=== PATIENT | male | born 1970 | race Caucasian/White ===

== ENCOUNTER 2018-04-21 07:42 | Emergency (ER) | payer BC ==
[~2018-04-21] VITALS: Ht 180.3 cm; Wt 149.7 kg
--- OUTSIDE RECORDS SUMMARY | 2018-04-21 07:44 | XMS REPORT | Clinical Summary ---
Author Author [facility] Address Unknown Phone Unavailable Care Team Providers Care Pan Devulcanizer Helper Name Role Phone Jerrell Justice MD PCP Allergies Comments Active Allergy Reactions Severity Noted Date No Known Drug Allergies Other (See 07/03/2015 Comments) Medications End Date Status Medication Sig Dispensed Refills Start Date Active lisinopril TK 1 T PO D 2 (PRINIVIL,ZESTRIL) 20 MG 6 tablet Active lancets (ACCU-CHEK Check daily 100 each 10 FASTCLIX) misc 6 Active FREESTYLE LITE STRIPS CHECK BLOOD 400 strip 10 strip test strips SUGAR BEFORE 7 MEALS AND EVERY NIGHT AT BEDTIME Active sertraline (ZOLOFT) 50 MG 0 tablet 7 Active atorvastatin (LIPITOR) 10 TK 1 T PO 6 MG tablet ONCE QD 7 Active INVOKAMET 150-500 mg TAKE 1 TABLET 180 tablet 1 tablet BY MOUTH 7 TWICE DAILY DIRECTED Active Problems Problem Noted Date Uncontrolled type 2 diabetes mellitus 07/03/2015 Vitamin D deficiency 07/03/2015 Encounters Care Team Description Date Type Specialty Linda Sow MD 08/13/2017 Refill Endocrinology after 04/20/2017 Social History Date Tobacco Use Types Packs/Day Years Used Former Smoker 20 Alcohol Use Drinks/Week oz/Week Comments No Sex Assigned at Date Recorded Not on file Industry Job Start Date Occupation Not on file Not on file Not on file Travel End Travel History Travel Start No recent travel history available. Last Filed Vital Signs Not on file Plan of Treatment Health Maintenance Due Date Last Done Comments DIABETIC RETINAL EYE EXAM 1970 MMR VACCINES (1 of - 12/29/1971 Standard series) DIABETIC FOOT EXAM 1980 VARICELLA VACCINES (1 of 12/29/1983 2 - 2-dose adolescent series) HEPATITIS B VACCINES (1 1989 of 3 - Risk 3-dose series) URINE MICROALBUMIN 02/13/2017 02/14/2016 INFLUENZA VACCINE 12/24/2017 IPV VACCINES Aged Out No longer eligible based on patient's age to complete this topic MENINGOCOCCAL VACCINE Aged Out No longer eligible based on patient's age to complete this topic Results Not on fileafter 04/20/2017 Insurance Payer Benefit Subscriber ID Type Phone Address Plan / Group CIGNA CIGNA xxxxxxxxxxx HMO LOCAL PLUS/SUREF IT Advance Directives Patient has advance care planning documents on file. For more information, josselyn colón contact: Terrance Jovel [address] [place] [address]
[2018-04-21] MEDS ORDERED: ONDANSETRON HCL INJ 2 MG/ML VIAL IV STA (08:11)
[2018-04-21] MEDS ORDERED: KETOROLAC TROMETHAMINE 30 MG/ML VIAL IV STA (08:11)
[2018-04-21] MEDS ORDERED: SODIUM CHLORIDE 0.9% 1000ML 1,000 ML IV ONE (09:00)
--- NOTE | 2018-04-21 09:09 | Diagnostic Imaging Report ---
PROCEDURE:CT ABD/PEL WO CONTRAST-HOPD COMPARISON:None. INDICATIONS:LLQ abd pain since 3am with n/v Technique: Helical axial images of the abdomen and pelvis were obtained without intravenous contrast per referring physician request. Coronal and sagittal reformatted images were available for review. FINDINGS: Sensitivity and specificity of this examination are limited in the absence of intravenous contrast. Lung bases: Unremarkable Liver: No focal hepatic lesion. No intrahepatic biliary ductal dilatation. Gallbladder is unremarkable. Spleen: Unremarkable. Pancreas: No focal mass or ductal dilatation. Adrenals: No nodules Kidneys: 5 mm left ureteropelvic junction calculus seen on series 2 image 48 results in mild hydronephrosis. No additional renal, ureteral, or bladder calculi. No gross renal mass lesion. Pelvic organs: Urinary bladder is incompletely distended but otherwise unremarkable. Prostate and seminal vesicles appear normal. Right hemipelvic phlebolith. GI tract: The large bowel shows no evidence of distention or wall thickening. Gas and fecal material are noted throughout. The appendix is normal. The stomach is incompletely distended with prominence of the rugal folds. No small bowel dilatation to suggest obstruction. Lymph nodes: No pelvic sidewall, retroperitoneal, or mesenteric adenopathy. Peritoneum/retroperitoneum: No ascites. No pneumoperitoneum. Blood vessels: Limited evaluation without intravenous contrast. The abdominal aorta is non-aneurysmal. Soft tissues: Fat-containing umbilical hernia. Fat-containing left inguinal hernia. Otherwise no focal soft tissue abnormalities. Bones: No osseous destructive lesion. Mild degenerative disc changes and facet arthropathy of the lumbar spine. Transitional lumbosacral anatomy with a left-sided pseudoarthrosis between L5 and S1. CONCLUSION: 5 mm left ureteropelvic junction calculus results in mild hydronephrosis. Otherwise no acute intra-abdominal or pelvic CT abnormalities. Dictated by: Hamlet Madrigal M.D. on 04/21/2018 at 9:19 Electronically approved by: Hamlet Madrigal M.D. on 04/21/2018 at 9:19
[2018-04-21 09:24] VITALS: BP 170/88
[2018-04-30] MEDS ORDERED: TAMSULOSIN HCL0.4 MG (14:23)
[2018-04-30] MEDS ORDERED: INVOKAMET (14:23)
[2018-04-30] MEDS ORDERED: PENTAZOCINE-NA1 EACH (14:23)
[2018-04-30] MEDS ORDERED: SERTRALINE HCL50 MG PO (14:23)
[2018-04-30] MEDS ORDERED: VICTOZA 2-0.6 MG/0.1 (14:23)
[2018-04-30] MEDS ORDERED: ATORVASTATIN CA10 MG PO (14:23)
[2018-04-30] MEDS ORDERED: IBUPROFEN400 MG PO (14:23)
[2018-04-30] MEDS ORDERED: LISINOPRIL10 MG PO (14:23)
== END 2018-04-21 09:33 | disposition home or self-care (01) ==
LOC: FSED 07:42
DX: R10.32 Left lower quadrant pain (principal); R11.2 Nausea with vomiting, unspecified; R31.9 Hematuria, unspecified; N20.0 Calculus of kidney; N13.30 Unspecified hydronephrosis; I10 Essential (primary) hypertension; E11.9 Type 2 diabetes mellitus without complications; E78.5 Hyperlipidemia, unspecified
CPT/HCPCS: 74176; 80048; 81003; 85025; 99284; J1885; J2405; J7030

== ENCOUNTER → 2018-05-01 | Day surgery (SDC) | payer BC ==
[2018-04-30 14:49] LABS: ANION GAP 17.3 mmol/L (8-16); BLOOD UREA NITROGEN 13 mg/dL (7-26); BUN/CREATININE RATIO 15 (6-25); CALCIUM 9.7 mg/dL (8.4-10.2); CARBON DIOXIDE 24 mmol/L (22-29); CHLORIDE 103 mmol/L (98-107); CREATININE, SERUM 0.88 mg/dL (0.72-1.25); EST GLOMERULAR FILTRATION RATE > 60 ML/MIN (60-); GLUCOSE 89 mg/dL (74-118); POTASSIUM 4.3 mmol/L (3.5-5.1); SODIUM 140 mmol/L (136-145)
[~2018-05-01] MED LIST: ATORVASTATIN CA10 MG PO; CEFTRIAXONE SOD 1 GM VIAL ONE; DEXAMETHASONE SOD PHOS INJ 4 MG/ML VIAL ONE; FENTANYL CITRATE/PF 100MCG/2 ML INJ ONE; GLYCOPYRROLATE INJ 1MG/ 5 ML SYR ONE; IBUPROFEN400 MG PO; INVOKAMET; IOPAMIDOL 610MG/1ML 300 MG/ML VIAL IV ONE; KETOROLAC TROMETHAMINE 30 MG/ML VIAL ONE; LIDOCAINE HCL 2% LOCAL INJ 5 ML SDV VIAL INJ ONE; LISINOPRIL10 MG PO; MIDAZOLAM HCL 2 MG/2 ML VIAL ONE; NEOSTIGMINE 5 MG/5ML SYR ONE; ONDANSETRON HCL INJ 2 MG/ML VIAL ONE; PENTAZOCINE-NA1 EACH; PROPOFOL IV EMULSION 10 MG/ML 20 ML VIAL ONE; SERTRALINE HCL50 MG PO; SEVOFLURANE INHAL SOLN 250 ML PEN BTL ONE; TAMSULOSIN HCL0.4 MG; VICTOZA 2-0.6 MG/0.1
--- OUTSIDE RECORDS SUMMARY | 2018-05-01 06:34 | XMS REPORT ---
[facility] Address Unknown Phone Unavailable Care Team Providers Care Merchandise Complaint Adjuster Name Role Phone Edmund ARNOLD Unavailable Unavailable Problems This patient has no known problems. Allergies, Adverse Reactions, Alerts This patient has no known allergies or adverse reactions. Medications This patient has no known medications. Results Test Description Test Time Test Comments Text Results Atomic Results Result Comments CT ABD/PEL WO CONTRAST-HOPD 2018-04-21 09:19:00 [place] [address] Patient Name: AMADOU JUDGE MR #: [id number] : 1970 Age/Sex: 47/M Req #: [id number] Adm Physician: Ordered by: SCOTT ARNOLD MD Report #: [id number] Location: FS Room/Bed: Procedure: [id number] HOPD/CT ABD/PEL WO CONTRAST-HOPD Exam Date: 04/21/18 Exam Time: 0840 REPORT STATUS: Signed PROCEDURE: CT ABD/PEL WO CONTRAST-HOPD COMPARISON: None. INDICATIONS: LLQ abd pain since 3am with n/v Technique: Helical axial images of the abdomen and pelvis were obtained without intravenous contrast per referring physician request. Coronal and sagittal reformatted images were available for review. FINDINGS: Sensitivity and specificity of this examination are limited in the absence of intravenous contrast. Lung bases: Unremarkable Liver: No focal hepatic lesion. No intrahepatic biliary ductal dilatation. Gallbladder is unremarkable. Spleen: Unremarkable. Pancreas: No focal mass or ductal dilatation. Adrenals: No nodules Kidneys: 5 mm left ureteropelvic junction calculus seen on series 2 image 48 results in mild hydronephrosis. No additional renal, ureteral, or bladder calculi. No gross renal mass lesion. Pelvic organs: Urinary bladder is incompletely distended but otherwise unremarkable. Prostate and seminal vesicles appear normal. Right hemipelvic phlebolith. GI tract: The large bowel shows no evidence of distention or wall thickening. Gas and fecal material are noted throughout. The appendix is normal. The stomach is incompletely distended with prominence of the rugal folds. No small bowel dilatation to suggest obstruction. Lymph nodes: No pelvic sidewall, retroperitoneal, or mesenteric adenopathy. Peritoneum/retroperitoneum: No ascites. No pneumoperitoneum. Blood vessels: Limited evaluation without intravenous contrast. The abdominal aorta is non- aneurysmal. Soft tissues: Fat-containing umbilical hernia. Fat-containing left inguinal hernia. Otherwise no focal soft tissue abnormalities. Bones: No osseous destructive lesion. Mild degenerative disc changes and facet arthropathy of the lumbar spine. Transitional lumbosacral anatomy with a left-sided pseudoarthrosis between L5 and S1. CONCLUSION: 5 mm left ureteropelvic junction calculus results in mild hydronephrosis. Otherwise no acute intra-abdominal or pelvic CT abnormalities. Dictated by: Ada Armstrong M.D. on 04/21/2018 at 9:19 Electronically approved by: Ada Armstrong M.D. on 04/21/2018 at 9:19 Dictated By: ADA ARMSTRONG MD 8 Transcribed By: MILE on 04/21/18918 COPY TO: SCOTT ARNOLD MD
--- OUTSIDE RECORDS SUMMARY | 2018-05-01 06:34 | XMS REPORT | Clinical Summary ---
Author Author [facility] Address Unknown Phone Unavailable Care Team Providers Care Weight Loss Physician Name Role Phone Jerrell Justice MD PCP [...] Linda Sow MD 08/13/2017 Refill Endocrinology after 04/30/2017 Social History Date Tobacco Use Types Packs/Day [...] Done Comments DIABETIC RETINAL EYE EXAM 1970 DIABETIC FOOT EXAM 1980 HEPATITIS B VACCINES (1 1989 of 3 - Risk 3-dose series) URINE MICROALBUMIN 02/13/2017 02/14/2016 INFLUENZA VACCINE 12/24/2017 IPV VACCINES Aged Out No longer eligible based on patient's age to complete this topic MENINGOCOCCAL VACCINE Aged Out No longer eligible based on patient's age to complete this topic Results Not on fileafter 04/30/2017 Insurance Payer Benefit Subscriber ID Type Phone Address Plan / Group CIGNA CIGNA xxxxxxxxxxx HMO LOCAL PLUS/SUREF IT Advance Directives Patient has advance care planning documents on file. For more information, josselyn colón contact: Terrance Jovel [address] [place] [address]
[2018-05-01 09:55] VITALS: BP 121/77
--- NOTE | 2018-05-01 12:54 | Operative Report ---
DATE OF PROCEDURE: May 01, 2018 PREOPERATIVE DIAGNOSES 1. Left ureteral calculus. 2. Microscopic hematuria. 3. Left hydronephrosis. POSTOPERATIVE DIAGNOSES 1. Left ureteral calculus. 2. Microscopic hematuria. 3. Left hydronephrosis. PROCEDURES 1. Cystourethroscopy with right ureteral catheterization and right retrograde pyelogram (separate procedure performed for microscopic hematuria). 2. Left-sided ureteroscopy with laser lithotripsy and stent placement (entirely separate procedure for left ureteral calculus). 3. Left ureteroscopy with stone extraction (entirely separate procedure for the explicit purposes of sending stones for analysis, not required for later lithotripsy). 4. Supervision of fluoroscopy for the ureteroscopy portion. 5. Supervision of fluoroscopy and stent insertion. 6. Interpretation of retrograde ureteropyelography. ANESTHESIA: General. ESTIMATED BLOOD LOSS: Minimal. COMPLICATIONS: None. INDICATIONS: Mr. Escobar is a very pleasant 47-year-old male with a history of failure of trial of passage of a 7 mm proximal ureteral stone. He and I had a long discussion about alternatives, risks and benefits including doing nothing, shock wave lithotripsy, ureteroscopy and percutaneous surgery. He voiced understanding of the options, alternatives, risks, and benefits and he elected to proceed with ureteroscopy. PROCEDURE IN DETAIL: After informed consent was obtained, the patient was taken to the operating suite and placed on the operating table and underwent general anesthesia by the anesthesia service. He was then placed in the dorsal lithotomy position and sterilely prepped and draped in the standard fashion for cystoscopy. A 22.5-Maori cystoscope was inserted per urethra and panendoscopy of the bladder revealed no tumors and no stones. Both ureteral orifices were within normal anatomic location and position and seen to efflux clear urine. Bilateral retrograde pyelograms were performed. The right was normal. The left ureter had a 7 mm proximal ureteral calculus with proximal hydronephrosis. Guidewire was inserted. The ureter was dilated. The flexible ureteroscope was advanced to the level of the ureteral calculus. This was then ablated with a 2000 micron laser fiber. [employer] Control Room Operator fragment was basket extracted and passed off the table as a specimen. A ureteral stent was then deployed with the coil in the renal pelvis and a coil in the bladder. String was left out of the meatus. The bladder was drained. The patient was awakened from anesthesia and transported to the recovery room in excellent condition. SUPERVISION OF FLUOROSCOPY, INTERPRETATION OF RETROGRADE URETERAL PYELOGRAPHY: I was present throughout the entire procedure and I supervised the use of fluoroscopy. There was no radiologist present. Attention was turned toward the left and right ureteral orifices and catheterized. A retrograde pyelogram was performed. The right revealed a delicate ureter and delicate pelviceal system. No evidence of filling defects. No evidence of hydronephrosis. On the left, there was a 7 mm proximal ureteral calculus and proximal hydronephrosis, intermittent resolution of the stone and stent placement. Job#: [id number] RI
--- NOTE | 2018-05-04 07:47 | Diagnostic Imaging Report ---
PROCEDURE: X-RAY RETROGRADE PYELOGRAM COMPARISON: [facility], [facility], CT ABD/PEL WO CONTRAST-[facility], 04/21/2018, 8:38. INDICATIONS: Left ureteral stone FINDINGS: Multiple intraoperative spot images of the abdomen and pelvis were obtained. There is retrograde cannulization of both ureters with contrast injection. Mild left hydronephrosis is noted. A left double-J ureteral stent has been placed. Cumulative fluoro time: 1 minute and 13 seconds Cumulative area dose product: 1268.61 cGycm2 Cumulative air kerma: 35.83 mGy CONCLUSION: 1. Retrograde pyelogram as described above. 2. Please see the full report provided by the performing physician. Willis Villeda D.O. Dictated by: Willis Villeda D.O. on 05/04/2018 at 7:57 Electronically approved by: Willis Villeda D.O. on 05/04/2018 at 7:57
== END | disposition home or self-care (01) ==
LOC: OR 06:33
PROVIDERS: ATTEND Urology
DX: N13.2 Hydronephrosis with renal and ureteral calculous obstruction (principal); E11.9 Type 2 diabetes mellitus without complications; E66.01 Morbid (severe) obesity due to excess calories; I10 Essential (primary) hypertension; G47.33 Obstructive sleep apnea (adult) (pediatric); I45.10 Unspecified right bundle-branch block; F32.9 Major depressive disorder, single episode, unspecified; Z01.810 Encounter for preprocedural cardiovascular examination; Z01.812 Encounter for preprocedural laboratory examination; Z79.84 Long term (current) use of oral hypoglycemic drugs; Z68.42 Body mass index [BMI] 45.0-49.9, adult; Z87.891 Personal history of nicotine dependence
CPT/HCPCS: 36415 ×2; 52356; 74420; 80048; 82948; 88300; 93005; C2617; J0696; J1100; J1885; J2001; J2250; J2405; J2704; J3490; Q9967

== ENCOUNTER 2021-03-19 08:14 | Emergency (ER) | payer BC ==
[~2021-03-19] VITALS: Ht 180.3 cm; Wt 149.7 kg
[~2021-03-19 08:14] MED LIST changes: -CEFTRIAXONE SOD 1 GM VIAL ONE; -DEXAMETHASONE SOD PHOS INJ 4 MG/ML VIAL ONE; -FENTANYL CITRATE/PF 100MCG/2 ML INJ ONE; -GLYCOPYRROLATE INJ 1MG/ 5 ML SYR ONE; -IOPAMIDOL 610MG/1ML 300 MG/ML VIAL IV ONE; -KETOROLAC TROMETHAMINE 30 MG/ML VIAL ONE; -LIDOCAINE HCL 2% LOCAL INJ 5 ML SDV VIAL INJ ONE; -MIDAZOLAM HCL 2 MG/2 ML VIAL ONE; -NEOSTIGMINE 5 MG/5ML SYR ONE; -ONDANSETRON HCL INJ 2 MG/ML VIAL ONE; -PROPOFOL IV EMULSION 10 MG/ML 20 ML VIAL ONE; -SEVOFLURANE INHAL SOLN 250 ML PEN BTL ONE
[2021-03-19] MEDS ORDERED: ONDANSETRON HCL INJ 2MG/ML 2ML 2 MG/ML VIAL IV STA (08:36)
[2021-03-19] MEDS ORDERED: ONDANSETRON HCL INJ 2MG/ML 2ML 2 MG/ML VIAL ONE (08:52)
[2021-03-19] MEDS ORDERED: SODIUM CHLORIDE 0.9% 1000ML 1,000 ML IV STA (09:00)
[2021-03-19] MEDS ORDERED: SODIUM CHLORIDE 0.9% 1000ML 1,000 ML ONE (09:27)
[2021-03-19] MEDS ORDERED: ZOFRAN4 MG PO (10:10)
[2021-03-19] MEDS ORDERED: DICYCLOMINE HCL10 MG PO (10:10)
== END 2021-03-19 11:11 | disposition home or self-care (01) ==
LOC: FSED 08:36
DX: R10.13 Epigastric pain (principal); R11.2 Nausea with vomiting, unspecified; R19.7 Diarrhea, unspecified; E11.65 Type 2 diabetes mellitus with hyperglycemia; I10 Essential (primary) hypertension; E78.5 Hyperlipidemia, unspecified
CPT/HCPCS: 74176; 80048; 80076; 81003; 85025; 99284; J2405; J7030